=== PATIENT | female | born 1965 | race Caucasian/White ===

== ENCOUNTER 2019-01-31 20:45 | Emergency (ER) | payer SELFPAY ==
[~2019-01-31] VITALS: Ht 165.1 cm; Wt 80.4 kg
[2019-01-31 21:38] VITALS: BP 177/93; PULSE 84; RESP 17; Ht 165.1 cm; Wt 80.4 kg
== END 2019-02-01 02:00 | disposition left against medical advice (07) ==
LOC: FTE 20:45
DX: Z53.21 Procedure and treatment not carried out due to patient leaving prior to being seen by health care provider (principal)

== ENCOUNTER 2019-04-04 21:20 | Emergency (ER) | payer OTHER ==
[~2019-04-04] VITALS: Ht 160 cm; Wt 80.0 kg
[2019-04-04 21:29] VITALS: Ht 160 cm; Wt 80.0 kg
[2019-04-05] MEDS ORDERED: SULF1TAB31 PO (00:08)
[2019-04-05] MEDS ORDERED: MUPI22OI2 TOP (00:08)
[2019-04-05] MEDS ORDERED: HYDR25CA PO (00:08)
[2019-04-05] MEDS ORDERED: CEPH-443 PO (00:08)
[2019-04-05] MEDS ORDERED: HC30CR25 TOP (00:08)
--- NOTE | 2019-04-05 00:15 | EN ---
Date/Time of Note Date/Time of Note DATE: 04/05/19 TIME: 00:15 JOVANNY ZAIDI NP Apr 05, 2019 00:15
[2019-04-05] MEDS ORDERED: DIPHENHYDRAMINE 25 MG CAP PO ONE (00:30)
[2019-04-05 00:50] VITALS: BP 132/85; PULSE 75; RESP 20
--- NOTE | 2019-04-12 12:08 | ERD ---
ER Documentation Chief Complaint Chief Complaint rash on dixon arms and genital area x 1 month HPI This is a 54-year-old female patient who presents to emergency room with rash under her breasts and in groin area x2 months. Saw her primary care doctor who prescribed a "cream" 1 month ago that did not help. +pruritis, no fevers, no new medications, lotions, soaps, or exposures. ROS All systems reviewed and are negative except as per history of present illness. Medications Home Meds Active Scripts Mupirocin* (Bactroban*) 2% -22 Gram Oint...g., 1 APPLIC TOP BID PRN for skin infection for 14 Days, #42 G Prov:JOVANNY ZAIDI NP 04/05/19 Hydrocortisone* Topical (Hydrocortisone* Topical) 2.5%-28.3 Gm Cream..g., 1 APPLIC TOP BID PRN for ITCHING for 14 Days, #84 G Prov:JOVANNY ZAIDI NP 04/05/19 Sulfamethoxazole/Trimethoprim* (Bactrim Ds* Tablet) 1 Each Tablet, 1 TAB PO BID for cellulitis for 7 Days, #14 TAB Prov:JOVANNY ZAIDI NP 04/05/19 Cephalexin* (Keflex*) 500 Mg Capsule, 500 MG PO QID for cellulitis for 7 Days, #28 CAP Prov:JOVANNY ZAIDI NP 04/05/19 Hydroxyzine Pamoate* (Vistaril*) 25 Mg Capsule, 25 MG PO Q6H PRN for ITCHING for 14 Days, #30 CAP Prov:JOVANNY ZAIDI NP 04/05/19 Allergies Allergies: Coded Allergies: No Known Allergy (Unverified , 04/04/19) PMhx/Soc Hypertension, thyroid cancer with thyroidectomy, prediabetes Medical and Surgical Hx: pt denies Surgical Hx Hx Alcohol Use: No Hx Substance Use: No Hx Tobacco Use: No Smoking Status: Never smoker FmHx Family History: diabetes Physical Exam Physical Exam Const: No acute distress Head: Atraumatic Eyes: Normal Conjunctiva, PERRL ENT: Normal External Ears, Nose and Mouth. Pharynx pink, moist, no lesions, no exudate, no petechiae Neck: Full range of motion. No meningismus. No lymphadenopathy Resp: Clear to auscultation bilaterally, no wheezing Cardio: Regular rate and rhythm, no murmurs Abd: Soft, non tender, non distended. Normal bowel sounds, no spleno or hepatomegaly Skin: BL breasts: red, macular, blanchable, no satellite lesions; Groin and buttocks: multiple lesions with crusted centers, induration, erythema Back: No midline or flank tenderness Ext: No cyanosis, or edema Neur: Awake and alert Psych: Normal Mood and Affect Results 24 hrs Current Medications Medications Dose Sig/Sarah Start Time Status Last (Trade) Ordered Route PRN Stop Time Admin Dose Reason Admin 25 mg ONCE ONCE 04/05/19 DC 04/05/19 Diphenhydrami PO 00:30 04/05/19 00:16 ne HCl 00:31 (Benadryl) Procedures/MDM Is a 54-year-old female who presents with chronic rash. ED COURSE: The patient was stable throughout ED course. MEDICATIONS GIVEN: Patient tolerated medication well with no adverse reactions. Patient reported improvement in pain. MDM: Benadryl This patients soft tissue infection appears to be appropriate for outpatient treatment with close follow-up for reevaluation by a clinician within 24-48 hours. A serious, rapidly progressive infectious process is unlikely based upon the patients presentation and appearance of the infection. Antibiotic treatment has been initiated here and response to treatment will be based on reassessment at close follow-up. The patient has been instructed on signs and symptoms of acute progression of infection and to return immediately if any of these occur. DISPOSITION: The patient has been discharge home to follow-up with community physician. Departure Diagnosis: Primary Impression: Cellulitis Additional Impression: Rash Condition: Stable Patient Instructions: Self-Care for Skin Rashes Referrals: [facility] YOU HAVE RECEIVED A MEDICAL SCREENING EXAM AND THE RESULTS INDICATE THAT YOU DO NOT HAVE A CONDITION THAT REQUIRES URGENT TREATMENT IN THE EMERGENCY DEPARTMENT. FURTHER EVALUATION AND TREATMENT OF YOUR CONDITION CAN WAIT UNTIL YOU ARE SEEN IN YOUR DOCTORS OFFICE WITHIN THE NEXT 1-2 DAYS. IT IS YOUR RESPONSIBILITY TO MAKE AN APPOINTMENT FOR FOLOW-UP CARE. IF YOU HAVE A PRIMARY DOCTOR --you should call your primary doctor and schedule an appointment IF YOU DO NOT HAVE A PRIMARY DOCTOR YOU CAN CALL OUR PHYSICIAN REFERRAL HOTLINE AT IF YOU CAN NOT AFFORD TO SEE A PHYSICIAN YOU CAN CHOSE FROM THE FOLLOWING [facility] [id number] [facility]. [facility] [address] [facility] [facility] [address] [facility] [address] [facility] [address]. [facility]. [address] Additional Instructions: Thank you very much for allowing us to participate in your care. Your health and safety is our top priority at [facility]. Call your primary care doctor TOMORROW for an appointment during the next 2-4 days and bring all the information and medications prescribed. Have prescriptions filled and follow precisely the directions on the label. If the symptoms get worse and your provider is unavailable, return to the Emergency Department immediately. TAKE VISTARIL EVERY 6 HOURS NEEDED FOR ITCHING. COMPLETE ENTIRE COURSE OF ANTIBIOTICS FOR SKIN INFECTION. USE MUPIROCIN CREAM ON LESIONS IN GENITAL AREA. USE HYDROCORTISONE ON RED ITCHING AREAS UNDER BREAST, ON ARMS, AND ON ABDOMEN. FOLLOW-UP WITH A WEBBING WEAVER FOR FURTHER EVALUATION- CALL YOUR INSURANCE TO SEE IF YOU CAN *SELF REFER TO DERMATOLOGY* HYDRATE YOUR SKIN DAILY, USE MOISTURIZING CREAM SUCH : LUBRADERM EXTRA STRENGTH CERAVE EUCERIN AVOID IRRITANTS SUCH PERFUMES, SOAPS/LOTIONS/DETERGENTS WITH PERFUMES OR DYES- LOOK FOR PRODUCTS THAT ARE *HYPOALLERGENIC* JOVANNY ZAIDI NP Apr 12, 2019 12:08
== END 2019-04-05 00:50 | disposition home or self-care (01) ==
LOC: FTE 21:20
DX: L03.311 Cellulitis of abdominal wall (principal); L03.317 Cellulitis of buttock
CPT/HCPCS: 99283